=== PATIENT | male | born 1960 | race African-American/Black ===

== ENCOUNTER → 2020-01-09 | Outpatient (CLI) | payer OTHER ==
--- NOTE | 2020-01-09 16:13 | RADIOLOGY REPORT (SQ) ---
EXAM DESCRIPTION: MRI LT UPPER JOINT WITHOUT IMAGES COMPLETED DATE/TIME: 01/09/2020 11:36 am REASON FOR STUDY: M66.829 SPONTANEOUS RUPTURE OF OTHER TENDONS, UNSPECIFIED UPPER ARM, M66.82 M66.82 2 SPONTANEOUS RUPTURE OF OTHER TENDONS, LEFT UPPER ARM M66.829 SPONTANEOUS RUPTURE OF OTHER TENDONS , UNSPECIFIED UP COMPARISON: None. TECHNIQUE: Non arthrogram non contrasted MRI left elbow images acquired and stored on PACS. Multipla valerie images to include fat sensitive sequences as T1, fluid sensitive sequences as T2/STIR, cartilage sensitive sequences as FSPD, and gradient echo sequences. LIMITATIONS: Mild motion artifact FINDINGS: Acute tear, distal triceps tendon at the olecranon attachment. There is a gap in the tend on 2.5 cm on sagittal image 13. No underlying olecranon fracture. There is diffuse hemorrhage and e alyssa at the musculotendinous junction of the triceps distally, best shown on axial images 5 through 1 3. BONE MARROW: No alteration of signal to suggest marrow replacement or edema. No occult fracture. No l arge osteophytes. JOINT EFFUSION: Small joint effusion. No loose bodies. ARTICULAR SURFACES: Normal. MEDIAL COLLATERAL LIGAMENT COMPLEX: Intact without edema or tear. MEDIAL EPICONDYLE AND COMMON FLEXOR TENDON: No tendinopathy. No partial or full-thickness tear. LATERAL COLLATERAL LIGAMENT: Intact without edema or tear. LATERAL EPICONDYLE AND COMMON EXTENSOR TENDON: Proximal tendinopathy with increased signal on coronal images 13-15. No full-thickness tear. Lateral epicondyle intact, no fracture or marrow edema. LATERAL ULNAR COLLATERAL LIGAMENT: Grossly intact BICEPS TENDON: Intact. No partial or full-thickness tendon tear. No muscle edema. TRICEPS TENDON: Acute full thickness tear ULNAR NERVE: Well-visualized without edema or encroachment. ADJACENT SOFT TISSUES: Edema in the distal triceps at the musculotendinous junction OTHER: No other significant finding. IMPRESSION: Acute rupture distal triceps tendon. No olecranon fracture TECHNICAL DOCUMENTATION: JOB ID: [id number] 2010 [employer]- All Rights Reserved Reading location - IP/workstation name: [email or web address]
== END ==
LOC: RAD 10:53
PROVIDERS: ATTEND Orthopaedic Surgery
DX: M66.822 Spontaneous rupture of other tendons, left upper arm (principal)

== ENCOUNTER 2020-01-13 10:35 | Day surgery (SDC) | payer OTHER ==
[~2020-01-13 10:35] MED LIST: CLINDAMYCIN 600 MG/D5W RTU 600 MG/50 ML RTUPB IV PRN; GLYCOPYRROLATE 1 MG/5 ML VIAL ONE
--- NOTE | 2020-01-13 11:18 | RADIOLOGY REPORT (SQ) ---
EXAM DESCRIPTION: CHEST SINGLE VIEW IMAGES COMPLETED DATE/TIME: 01/13/2020 11:00 am REASON FOR STUDY: pre op COMPARISON: None. EXAM PARAMETERS: NUMBER OF VIEWS: One view. TECHNIQUE: Single frontal radiographic view of the chest acquired. RADIATION DOSE: NA LIMITATIONS: None. FINDINGS: LUNGS AND PLEURA: No opacities, masses or pneumothorax. No pleural effusion. MEDIASTINUM AND HILAR STRUCTURES: No masses. Contour normal. HEART AND VASCULAR STRUCTURES: Heart normal in size. Normal vasculature. BONES: No acute findings. HARDWARE: Sternotomy wires. OTHER: No other significant finding. IMPRESSION: NO ACUTE RADIOGRAPHIC FINDING IN THE CHEST. TECHNICAL DOCUMENTATION: JOB ID: [id number] 2010 [employer]- All Rights Reserved Reading location - IP/workstation name: [email or web address]
[2020-01-13 11:21] LABS: HEMATOCRIT 45.4 % (37.9-51.0); HEMOGLOBIN 15.2 g/dL (13.5-17.0); MEAN CORPUSCULAR HEMOGLOBIN 29.1 pg (27.0-33.4); MEAN CORPUSCULAR HGB CONC 33.4 g/dL (32.0-36.0); MEAN CORPUSCULAR VOLUME 87 fl (80-97); PLATELET COUNT 225 10^3/uL (150-450); RED BLOOD COUNT 5.22 10^6/uL (4.35-5.55); RED CELL DISTRIBUTION WIDTH 13.7 % (11.5-14.0); WHITE BLOOD COUNT 5.2 10^3/uL (4.0-10.5)
[2020-01-13] MEDS ORDERED: CLINDAMYCIN 600 MG/D5W RTU 600 MG/50 ML RTUPB IV ONE (11:36)
[2020-01-13 11:39] LABS: ANION GAP 6 (5-19); BLOOD UREA NITROGEN 18 mg/dL (7-20); CALCIUM 9.5 mg/dL (8.4-10.2); CARBON DIOXIDE 27 mmol/L (22-30); CHLORIDE 105 mmol/L (98-107); GLUCOSE 113 mg/dL (75-110); POTASSIUM 4.5 mmol/L (3.6-5.0)
[2020-01-13] MEDS ORDERED: FENTANYL CITRATE INJ/PF 100 MCG/2 ML AMPUL ONE ×2 (14:28→17:25)
[2020-01-13] MEDS ORDERED: PROPOFOL INJ 200 MG/20 ML VIAL IV ONE (14:29)
[2020-01-13] MEDS ORDERED: DEXAMETHASONE SOD PHOSPHATE INJ 4 MG/1 ML VIAL ONE (14:29)
[2020-01-13] MEDS ORDERED: ONDANSETRON HCL INJ/PF 4 MG/2 ML SDV ONE ×2 (14:29→16:46)
[2020-01-13] MEDS ORDERED: MIDAZOLAM 2 MG/2 ML INJ ONE (14:29)
[2020-01-13] MEDS ORDERED: LIDOCAINE 0.5% INJ-PF (5 MG/ML) 50 ML SDV ONE (14:32)
[2020-01-13] MEDS ORDERED: BUPIVACAINE HCL 0.5 % INJ/PF 30 ML SDV ONE (14:51)
[2020-01-13] MEDS ORDERED: FENTANYL CITRATE INJ/PF 100 MCG/2 ML AMPUL IV PRN ×3 (15:53)
[2020-01-13] MEDS ORDERED: MEPERIDINE HCL/PF INJ 25 MG/1 ML DISP.SYRIN IV PRN (15:53)
[2020-01-13] MEDS ORDERED: DIPHENHYDRAMINE HCL 50 MG/ML VIAL IV PRN (15:53)
[2020-01-13] MEDS ORDERED: PROMETHAZINE HCL INJ 25 MG/1 ML VIAL IV PRN ×2 (15:53)
[2020-01-13] MEDS ORDERED: ONDANSETRON HCL INJ/PF 4 MG/2 ML SDV IV PRN (15:53)
[2020-01-13] MEDS ORDERED: MORPHINE SULFATE 10 MG/ML INJ IV PRN (15:53)
[2020-01-13] MEDS ORDERED: OXYCODONE-ACETAMINOPHEN 5-325 MG TABLET PO PRN (16:46)
[2020-01-13] MEDS ORDERED: HYDROMORPHONE HCL INJ/PF 2 MG/ML AMPULE IV PRN (16:46)
--- NOTE | 2020-01-13 16:47 | Discharge Summary ---
Discharge Summary (SDC) - Discharge Final Diagnosis: Left Triceps Rupture Date of Surgery: 01/13/20 Discharge Date: 01/13/20 Condition: Good Treatment or Instructions: Schedule Follow Up w/ Dr. Ariel Ta @ [facility] for Surgery to be seen in 10-14 days or as scheduled [place]: [place]: [place]: Ice and elevate Keep splint clean/dry/intact, do not remove. If your fingers become numb please unwrap the Andrew wrap but leave the splint in place, if the sensation does not return within 30 minutes please return to the emergency department. May begin finger range of motion attempting to make full fist. Please use ibuprofen (Motrin or Advil) 600-800 mg every 8 hours as needed for pain or fever DO NOT TAKE w/ TORADOL may use once TORADOL complete. You may also use acetaminophen (Tylenol) 1000 mg every 4-6 hours as needed for pain or fever. Please be aware that many medications contain acetaminophen, do not exceed a total of 1000 mg of acetaminophen every 6 hours. If ibuprofen and acetaminophen are not sufficient for your pain you may take the Percocet/Tropic. Please be aware that the Percocet/Tropic does contain Tylenol. Stool softener of choice when on pain medication. USE OF [id number] IBUPROFEN: Ibuprofen (Advil, Nuprin, Medipren, Motrin IB) is a medication for fever and pain control. In addition, it has anti- inflammatory effects which may be beneficial, especially in the treatment of injuries. It's best to take ibuprofen with food. Persons with ulcer disease or allergy to aspirin should notify their physician of this before taking ibuprofen. Ibuprofen can be given every four to six hours, for a total of four doses daily. Age Pain or fever dose Antiinflammatory dose 6-8 yr 200 mg (1 tab) 200 mg (1 tab) 9-11 yr 200 mg (1 tab) 200-400 mg (1-2 tab) 11-14 yr 200-400 mg (1-2 tab) 400 mg (2 tab) 15-adult 400 mg (2 tab) 600 mg (3 tab) ORAL NARCOTIC MEDICATION: You have been given a prescription for pain control. This medication is a narcotic. It's best taken with food, as nausea can result if taken on an empty stomach. Don't operate machinery or drive within six hours of taking this medication. Do not combine this medicine with alcohol, or with any medication which can cause sedation (such as cold tablets or sleeping pills) unless you get permission from the physician. Narcotics tend to cause constipation. If possible, drink plenty of fluids and eat a diet high in fiber and fruits. Please be aware that prescription narcotics also have the potential for abuse. People become addicted to these medications because of the general sense of wellbeing that they induce. This feeling along with a significant reduction in tension, anxiety, and aggression provides a stimulating seductive quality to these drugs. Once your pain is under control, we encourage you to discard your unused narcotics. Prescriptions: Ketorolac Tromethamine [Toradol 10 mg Tablet] 10 mg PO Q8HP PRN #12 tablet PRN Reason: Oxycodone HCl/Acetaminophen [Percocet 7.5-325 mg Tablet] 1 each PO Q6 PRN #25 tablet PRN Reason: Referrals: PHYLICIA BURKETT FNP [Primary Care Provider] - Respiratory Treatments at Home: Deep Breathing/Coughing, Incentive Spirometer Discharge Activity: No Lifting Over 10 Pounds, No Lifting/Push/Pulling Report the Following to Your Physician Immediately: Fever over 101 Degrees, Unusual Bleeding, Redness, Swelling, Warmth, Increased Soreness
--- NOTE | 2020-01-13 16:54 | Operative Report ---
Operative Report DATE OF SURGERY: 01/13/20 PREOPERATIVE DIAGNOSIS: Left triceps tendon rupture POSTOPERATIVE DIAGNOSIS: Same plus nondisplaced extra-articular olecranon fracture OPERATION: Left triceps tendon repair SURGEON: DAVID LAZARO ANESTHESIA: GA COMPLICATIONS: None ESTIMATED BLOOD LOSS: Minimal PROCEDURE: Indication for above procedure: 59-year-old male who sustained a fall onto his left elbow after which he had notable swelling and pain with attempted motion of his elbow. Patient prior to the fall did have antecedent pain. Subsequently MRI was ordered confirming diagnosis of triceps tendon tear. Treatment options were discussed decision was made to proceed with operative intervention. Procedure In Detail: Patient was seen and evaluated in the preoperative holding area. The LEFT upper extremity was initialized and marked. Patient received 2g of Ancef IV for bacterial prophylaxis. Patient was taken back to the operative room where transferred to the operative table and placed under general anesthesia. A surgical team debriefing was performed ensuring all instrumentation was available, the surgical procedure was discussed with possible concerns reviewed. The upper extremity was prepped with ChloraPrep and draped in a sterile fashion. A sterile tourniquet was placed around the left upper extremity. A timeout was done identifying correct patient, procedure and extremity everyone in attendance agree with this and verbalized no concerns. The extremity was exsanguinated the tourniquet was inflated to 250 mmHg. Longitudinal skin incision was utilized. Blunt dissection was performed. Any peripheral veins were coagulated with bipolar cautery. Full-thickness triceps tendon rupture was noted and retracted with a small piece of olecranon tip. There is a small nondisplaced fracture along the ulnar border of the olecranon which did not extend into the articular surface it was just superficially. Wou nd was copiously irrigated with normal saline. Distal triceps was debrided along with the insertion point. A running Krakw suture was made from distal to proximal and proximal to distal. Drill was then utilized to place pilot supervisor hole within the olecranon under C arm fluoroscopy which is approximately 15 mm from the olecranon tip. A second pilot supervisor hole was placed laterally under C arm fluoroscopy guidance. A Arthrex swivel lock loaded with fiber tape was placed within each hole respectively. Horizontal mattress sutures were placed within the triceps approximately 2 cm proximal and then the fiber tape were passed proximal to the mattress sutures. While maintaining elbow at 45 degrees of extension the mattress sutures were tied to provide initial fixation along the proximal row. Under C arm guidance 2 additional pilot supervisor holes medial and lateral distally under C arm fluoroscopy to ensure were placed anchors would not be placed within the joint. I then shuttled 1 FiberWire, limb of the Krakw, limb of the horizontal mattress from the ulnar and radial side respectively. This was then loaded on the swivel lock anchor while my office manager executive assistant maintained at 45 degrees of flexion this was secured. This was then repeated along the ulnar side with appropriate tension this adequately brought the triceps down to its original insertion point with additional compression with the lateral row. All sutures were cut. Elbow was able to be flexed to 75 degrees of without excessive tension. Final C arm fluoroscopy demonstrated no propagation of fracture nor propagation under direct visualization. Wound was copiously irrigated with normal saline. Defect along the lateral triceps was closed with interrupted 0 Vicryl suture. Subcutaneous tissues were closed with interrupted 3-0 Monocryl suture. Skin was closed with zonia. Incision was injected with 30 cc of 0.5% bupivacaine without epinephrine. Wound was dressed with Acticoat OpSite. Patient was placed in a dorsal and volar splint maintaining 60 degrees of elbow flexion. Tourniquet was deflated patient normal peripheral perfusion. Sponge counts, instrument counts, needle counts were correct. Patient was then awoken from anesthesia. Transferred from the operating room table to the operating room stretcher. There was no intraoperative complications patient tolerated procedure well stable to PACU. Postop plan: Patient will follow in the office in 2 weeks at which point we will transition to a hinged elbow brace at 75 degrees of flexion. With increased flexion to 90 degrees at 5 weeks postoperatively increasing 20 degrees/week until full range of motion was achieved. Once full range of motion is achieved we will begin active range of motion of the biceps with light resistance at the 8-week protocol. Will begin gradual weightbearing and strengthening of the triceps at approximately 10 weeks.
[2020-01-13] MEDS ORDERED: OXYCODONE-ACETAMINOPHEN 5-325 MG TABLET ONE (17:45)
--- NOTE | 2020-01-13 18:21 | RADIOLOGY REPORT (SQ) ---
EXAM DESCRIPTION: NO CHG FLUORO; ELBOW LEFT AP/LATERAL IMAGES COMPLETED DATE/TIME: 01/13/2020 4:42 pm; 01/13/2020 5:03 pm REASON FOR STUDY: LEFT TRICEP REPAIR COMPARISON: None. FLUOROSCOPY TIME: 19 seconds 5 Images saved to PACS LIMITATIONS: None. PROCEDURE: Triceps repair FINDINGS: Images in fluoro document the procedure. IMPRESSION: Triceps repair. Refer to operative note for further information. COMMENT: PQRS 6045F: Fluoroscopy time of the procedure is documented in the report. TECHNICAL DOCUMENTATION: JOB ID: [id number] 2010 [employer]- All Rights Reserved Reading location - IP/workstation name: [email or web address]
--- NOTE | 2020-01-13 18:21 | RADIOLOGY REPORT (SQ) ---
EXAM DESCRIPTION: NO CHG FLUORO; ELBOW LEFT AP/LATERAL IMAGES COMPLETED DATE/TIME: 01/13/2020 4:42 pm; 01/13/2020 5:03 pm REASON FOR STUDY: LEFT TRICEP REPAIR COMPARISON: None. FLUOROSCOPY TIME: 19 seconds 5 Images saved to PACS LIMITATIONS: None. PROCEDURE: Triceps repair FINDINGS: Images in fluoro document the procedure. IMPRESSION: Triceps repair. Refer to operative note for further information. COMMENT: PQRS 6045F: Fluoroscopy time of the procedure is documented in the report. TECHNICAL DOCUMENTATION: JOB ID: [id number] 2010 [employer]- All Rights Reserved Reading location - IP/workstation name: [email or web address]
[2020-01-13 19:07] VITALS: BP 124/88
--- NOTE | 2020-01-13 19:43 | EKG REPORT ---
SEVERITY:- OTHERWISE NORMAL ECG - SINUS ARRHYTHMIA, RATE 57-89 : Confirmed by: Delphine Presley 13-Jan-2020 19:42:30
== END 2020-01-13 19:00 | disposition home or self-care (01) ==
LOC: OROUT 10:35
PROVIDERS: ATTEND Orthopaedic Surgery
DX: S46.312A Strain of muscle, fascia and tendon of triceps, left arm, initial encounter (principal); S52.025A Nondisplaced fracture of olecranon process without intraarticular extension of left ulna, initial encounter for closed fracture; W19.XXXA Unspecified fall, initial encounter; Z79.899 Other long term (current) drug therapy; Z87.891 Personal history of nicotine dependence; Z88.0 Allergy status to penicillin; Z03.818 Encounter for observation for suspected exposure to other biological agents ruled out
CPT/HCPCS: 36415; 85027; 87635; 80048; 71045; 73070; 93005; 93010; 24341; C1713 ×2; J2250; J3490 ×3; J1100; J3010; J2405; J2704; C9803; 01710